=== PATIENT | female | born 1985 | race Caucasian/White ===

== ENCOUNTER 2017-03-11 09:38 | Emergency (ER) | payer OTHER ==
[~2017-03-11] VITALS: Ht 157.5 cm; Wt 60.2 kg
[~2017-03-11 09:38] MED LIST: FURO-85 PO; METH10TA2 PO; OXYC5TAB PO; POTA20TA16 PO
[2017-03-11 09:42] VITALS: Ht 157.5 cm; Wt 60.2 kg
[2017-03-11] MEDS ORDERED: HYDR1CAP85 PO (10:00)
[2017-03-11] MEDS ORDERED: DICY10CA12 PO (10:00)
[2017-03-11] MEDS ORDERED: SODIUM CHLORIDE 0.9% 1000ML 1,000 ML IV STA (10:09)
[2017-03-11] MEDS ORDERED: ONDANSETRON INJ 2 MG/ML 2 ML VIAL IV STA ×2 (10:09→14:32)
--- NOTE | 2017-03-11 10:12 | EMERGENCY ROOM VISIT NOTE ---
History Report prepared by Griselda: Crystal Jackson Under the Supervision of: Dr. Kyle Horner D.O. First contact with patient: 10:04 Chief Complaint: VOMITING Stated Complaint: VOMITING/STOMACH PROBLEMS Nursing Triage Summary: pt reports she has been in [facility] for meth. has not had any for 18 days feels nauseated and vomiting with diarrhea. has not been able to keep anything down. given benitol, and vistril not helping. reports losing 18 pounds History of Present Illness The patient is a 31 year old female who presents to the Emergency Room with complaints of worsening nausea and vomiting for the past several days. 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 She was originally placed on Methadone after a history of opioid dependence. She admits to worsening nausea with vomiting and diarrhea for the past several days and states she has been unable to keep anything down. The patient reports she was treated at the local [facility] with Bentyl and Vistaril, but they have provided no relief. She admits to an 18 pound weight loss in the past 3 weeks because of her nausea. She denies any recent fevers or illnesses or pain or swelling in her legs. 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 A total of 10 systems reviewed and were otherwise negative. Past Medical & Surgical Medical Problems: (1) maternal drug dependance Social History Smoking Status: Current Every Day Smoker Drug Use: other (history of opioid addiction) Marital Status: single, in relationship Housing Status: lives with family Occupation Status: unemployed Current/Historical Medications Scheduled Dicyclomine Hcl (Dicyclomine Hcl), 10 MG PO ACHS Methadone Hcl (Dolophine), 142 MG PO QAM Ondasetron Odt (Zofran Odt), 4 MG SL Q6H Scheduled PRN Hydroxyzine Pamoate (Vistaril), 25 MG PO TID PRN for Anxiety Allergies Coded Allergies: Citalopram (Verified Allergy, Unknown, SHORTNESS OF BREATH, 11/14/15) Physical Exam Vital Signs Date Time Temp Pulse Resp B/P (MAP) Pulse Ox O2 Delivery O2 Flow Rate FiO2 8/14/17 16:04 36.8 67 18 111/72 96 03/11/17 13:50 66 18 97/63 100 Room Air 03/11/17 11:58 63 18 112/75 98 03/11/17 10:37 65 18 115/80 98 Room Air 03/11/17 10:28 65 03/11/17 09:42 36.8 83 18 137/63 97 Room Air Physical Exam GENERAL: Patient is awake, alert, in no acute distress, patient is resting comfortably and showing no signs of anxiety EYES: The conjunctivae are clear. The pupils are round and reactive. EARS, NOSE, MOUTH AND THROAT: The nose is without any evidence of any deformity. Mucous membranes are moist tongue is midline NECK: The neck is nontender and supple. RESPIRATORY: Normal respiratory effort is noted there is no evidence of wheezing rhonchi or rales CARDIOVASCULAR: Regular rate and rhythm noted there no murmurs rubs or gallops normal S1 normal S2 GASTROINTESTINAL: The abdomen is soft. Bowel sounds are present in all quadrants. Abdomen is nontender MUSCULOSKELETAL/EXTREMITIES: There is no evidence of gross deformity full range of motion is noted in the hips and shoulders SKIN: There is no obvious evidence of any rash. There are no petechiae, pallor or cyanosis noted. NEUROLOGIC: Patient is awake alert and oriented x3 strength is symmetric patellar reflexes are 2+ bilaterally Medical Decision & Procedures ER Provider Diagnostic Interpretation: Radiology results as stated below per my review and radiologist interpretation: ABDOMINAL ULTRASOUND, RIGHT UPPER QUADRANT HISTORY: vomiting. COMPARISON: None. FINDINGS: Pancreas: The pancreatic tail is obscured by overlying bowel gas. The remaining portions of the pancreas are within normal limits. Liver: The liver is echogenic consistent with fatty change. Gallbladder: The gallbladder appears contracted. This likely accounts for the apparent wall thickening at 3 mm. No pericholecystic fluid. No gallstones. CBD: 4 mm. Right kidney: No hydronephrosis. IMPRESSION: 1. Contracted gallbladder which likely accounts for the wall thickening. No gallstones. 2. Hepatic steatosis. Electronically signed by: Gianluca Molina M.D. 03/11/2017 2:13 PM Laboratory Results 03/11/17 10:04 Red Blood Count 5.07, Mean Corpuscular Volume 92.3, Mean Corpuscular Hemoglobin 33.1, Mean Corpuscular Hemoglobin Concent 35.9, Mean Platelet Volume 11.8, Neutrophils (%) (Auto) 72.1, Lymphocytes (%) (Auto) 21.7, Monocytes (%) (Auto) 4.6, Eosinophils (%) (Auto) 0.8, Basophils (%) (Auto) 0.6, Neutrophils # (Auto) 6.31, Lymphocytes # (Auto) 1.90, Monocytes # (Auto) 0.40, Eosinophils # (Auto) 0.07, Basophils # (Auto) 0.05 03/11/17 10:04 Test 03/11/17 10:04 03/11/17 12:50 White Blood Count 8.75 K/uL (4.8-10.8) Red Blood Count 5.07 M/uL (4.2-5.4) Hemoglobin 16.8 g/dL (12.0-16.0) Hematocrit 46.8 % (37-47) Mean Corpuscular Volume 92.3 fL (80-100) Mean Corpuscular Hemoglobin 33.1 pg (25-34) Mean Corpuscular Hemoglobin Concent 35.9 g/dl (32-36) Platelet Count 265 K/uL (130-400) Mean Platelet Volume 11.8 fL (7.4-10.4) Neutrophils (%) (Auto) 72.1 % Lymphocytes (%) (Auto) 21.7 % Monocytes (%) (Auto) 4.6 % Eosinophils (%) (Auto) 0.8 % Basophils (%) (Auto) 0.6 % Neutrophils # (Auto) 6.31 K/uL (1.4-6.5) Lymphocytes # (Auto) 1.90 K/uL (1.2-3.4) Monocytes # (Auto) 0.40 K/uL (0.11-0.59) Eosinophils # (Auto) 0.07 K/uL (0-0.5) Basophils # (Auto) 0.05 K/uL (0-0.2) RDW Standard Deviation 37.3 fL (36.4-46.3) RDW Coefficient of Variation 11.1 % (11.5-14.5) Immature Granulocyte % (Auto) 0.2 % Immature Granulocyte # (Auto) 0.02 K/uL (0.00-0.02) Prothrombin Time 10.7 SECONDS (9.0-12.0) Prothromb Time International Ratio 1.0 (0.9-1.1) Activated Partial Thromboplast Time 25.4 SECONDS (21.0-31.0) Partial Thromboplastin Ratio 1.0 Anion Gap 8.0 mmol/L (3-11) Est Creatinine Clear Calc Drug Dose 85.8 ml/min Estimated GFR () 111.3 Estimated GFR (Non- 96.0 BUN/Creatinine Ratio 17.4 (10-20) Calcium Level 9.5 mg/dl (8.5-10.1) Total Bilirubin 0.8 mg/dl (0.2-1) Direct Bilirubin 0.3 mg/dl (0-0.2) Aspartate Amino Transf (AST/SGOT) 60 U/L (15-37) Alanine Aminotransferase (ALT/SGPT) 83 U/L (12-78) Alkaline Phosphatase 113 U/L (45-117) Total Protein 8.9 gm/dl (6.4-8.2) Albumin 4.0 gm/dl (3.4-5.0) Lipase 401 U/L (73-393) Human Chorionic Gonadotropin, Qual NEG (NEG) Salicylates Level < 1.7 mg/dl (2.8-20) Acetaminophen Level < 2 ug/ml (10-30) Urine Color DK YELLOW Urine Appearance CLEAR (CLEAR) Urine pH 6.5 (4.5-7.5) Urine Specific [place] 1.027 (1.000-1.030) Urine Protein NEG (NEG) Urine Glucose (UA) NEG (NEG) Urine Ketones 2+ (NEG) Urine Occult Blood NEG (NEG) Urine Nitrite NEG (NEG) Urine Bilirubin NEG (NEG) Urine Urobilinogen NEG (NEG) Urine Leukocyte Esterase TRACE (NEG) Urine WBC (Auto) 1-5 /hpf (0-5) Urine RBC (Auto) 0-4 /hpf (0-4) Urine Hyaline Casts (Auto) 1-5 /lpf (0-5) Urine Epithelial Cells (Auto) >30 /lpf (0-5) Urine Bacteria (Auto) NEG (NEG) Laboratory results per my review. Medications Administered Medications (Trade) Dose Ordered Sig/Luly Route Start Time Stop Time Status Last Admin Dose Admin Sodium Chloride 1,000 ml @ 999 mls/hr Q1H1M STAT IV 8/14/17 10:09 03/11/17 11:09 DC 03/11/17 10:15 999 MLS/HR Ondansetron HCl (Zofran Inj) 4 mg NOW STAT IV 03/11/17 10:09 03/11/17 10:10 DC 03/11/17 10:15 4 MG Potassium Chloride (Kcl 10 Meq / Wtr) 10 meq NOW STAT IV 03/11/17 10:48 03/11/17 10:50 DC 03/11/17 11:20 10 MEQ Ondansetron HCl (Zofran Inj) 4 mg NOW STAT IV 03/11/17 14:32 03/11/17 14:33 DC 03/11/17 14:32 4 MG ED Course 1008: The patient was evaluated in room B8. A complete history and physical examination were performed. 1009: Zofran 4 mg IV, NSS 1000 ml @ 999 mls/hr IV. 1048: Potassium Chloride 10 meq IV. 1423: I reevaluated the patient. She is feeling much better. I discussed her results and discharge instructions and she verbalized complete understanding and agreement. 1432: Zofran 4 mg IV. Medical Decision Prior records/ancillary studies reviewed. Triage Nursing notes reviewed. The patient's history was concerning for nausea, vomiting, diarrhea, and abdominal pain. Differential diagnosis: Etiologies such as gastroenteritis, food borne illness, infections, appendicitis , diverticulitis, inflammatory bowel disease, obstruction, GI bleed, biliary pathology, as well as others were entertained. The patient is a 31-year-old female who presented to the emergency department for an evaluation of nausea and vomiting. The patient did not appear to have any abdominal tenderness on physical exam. Her exam was not consistent with an acute surgical abdomen. She's been having problems because recently she has stopped her medications for opiate addiction and is started having some withdrawal symptoms including nausea and vomiting. The patient was treated with IV fluids and IV antiemetics. She was reevaluated multiple times. I discussed the patient's laboratory and radiographic studies with her. She was found have mild elevations in her liver function studies but states that this is not new for her and that she's had this before. She was encouraged to rest and avoid any strenuous activity. She was encouraged to continue all medications as prescribed. She was also encouraged to return to the emergency Department immediately if symptoms change worsen or the need arises. Medication Reconcilliation Current Medication List: was personally reviewed by me Blood Pressure Screening Patient's blood pressure: Normal blood pressure Blood pressure disposition: Did not require urgent referral Impression Primary Impression: Nausea Additional Impressions: Vomiting Dehydration Hypokalemia Scribe Attestation The scribe's documentation has been prepared under my direction and personally reviewed by me in its entirety. I confirm that the note above accurately reflects all work, treatment, procedures, and medical decision making performed by me. Departure Information Dispostion Home / Self-Care Prescriptions Ondasetron Odt (ZOFRAN ODT) 4 Mg Tab 4 MG SL Q6H for Nausea, #20 TAB Prov: Kyle Horner, DO 03/11/17 Referrals Lita Martins D.O. (PCP) Patient Instructions ED Nausea Vomiting, My [facility] Additional Instructions Call your family to schedule follow-up appointment. Continue all medications as prescribed. Drink plenty clear liquids. Problem Qualifiers Additional Impressions: Vomiting Vomiting type: unspecified Vomiting Intractability: non-intractable Nausea presence: with nausea Qualified Codes: R11.2 - Nausea with vomiting, unspecified
[2017-03-11 10:18] LABS: BASO % 0.6 %; BASO ABS # 0.05 K/uL (0-0.2); COMPLETE YES; EOS % 0.8 %; HEMATOCRIT 46.8 % (37-47); IG% 0.2 %; LYMPH % 21.7 %; MEAN CELL VOLUME 92.3 fL (80-100); MEAN CORPUSCULAR HEMOGLOBIN 33.1 pg (25-34); MEAN CORPUSCULAR HGB CONC 35.9 g/dl (32-36); MEAN PLATELET VOLUME 11.8 fL (7.4-10.4); MONO % 4.6 %; NEUT % 72.1 %; PLATELET COUNT 265 K/uL (130-400); RED BLOOD COUNT 5.07 M/uL (4.2-5.4); WHITE BLOOD COUNT 8.75 K/uL (4.8-10.8)
[2017-03-11 10:40] LABS: BUN/CREATININE RATIO 17.4 (10-20); CALCIUM 9.5 mg/dl (8.5-10.1); CREATININE 0.82 mg/dl (0.60-1.20); POTASSIUM 2.9 mmol/L (3.5-5.1)
[2017-03-11 10:42] LABS: PREG INTERNAL NEGATIVE QC NEG CLEAR BACKGROUND; PREG INTERNAL POSITIVE QC POS CONTROL LINE
[2017-03-11] MEDS ORDERED: POTASSIUM CHLORIDE 10 MEQ / 100ML WTR IV STA (10:48)
[2017-03-11 11:32] LABS: PROTHROMBIN TIME (PATIENT) 10.7 SECONDS (9.0-12.0)
[2017-03-11 11:55] LABS: ACETAMINOPHEN < 2 ug/ml (10-30)
[2017-03-11 13:21] LABS: URINE APPEARANCE CLEAR (CLEAR); URINE COLOR DK YELLOW; URINE EPITHELIAL CELL AUTO >30 /lpf (0-5); URINE NITRITE NEG (NEG); URINE PH 6.5 (4.5-7.5); URINE SPECIFIC GRAVITY 1.027 (1.000-1.030); UROBILINOGEN NEG (NEG)
[2017-03-11 13:55] LABS: MANUAL MICROSCOPIC REQUIRED? NO; REVIEW REQ? YES; URINE BILIRUBIN NEG (NEG)
--- NOTE | 2017-03-11 14:15 | DIAGNOSTIC IMAGING REPORT ---
ABDOMINAL ULTRASOUND, RIGHT UPPER QUADRANT HISTORY: vomiting. COMPARISON: None. FINDINGS: Pancreas: The pancreatic tail is obscured by overlying bowel gas. The remaining portions of the pancreas are within normal limits. Liver: The liver is echogenic consistent with fatty change. Gallbladder: The gallbladder appears contracted. This likely accounts for the apparent wall thickening at 3 mm. No pericholecystic fluid. No gallstones. CBD: 4 mm. Right kidney: No hydronephrosis. IMPRESSION: 1. Contracted gallbladder which likely accounts for the wall thickening. No gallstones. 2. Hepatic steatosis. Electronically signed by: Gianluca Molina M.D. 03/11/2017 2:13 PM Dictated Date/Time: 03/11/2017 2:12 PM
[2017-03-11] MEDS ORDERED: ONDA4TAB10 SL (14:22)
[2017-03-11 16:04] VITALS: BP 111/72; PULSE 67; TEMP 36.8; O2SAT 96
== END 2017-03-11 15:40 | disposition home or self-care (01) ==
LOC: C.EDB 09:40 → C.EDA 15:40
DX: R11.2 Nausea with vomiting, unspecified (principal); E86.0 Dehydration; E87.6 Hypokalemia; R19.7 Diarrhea, unspecified; F11.23 Opioid dependence with withdrawal; Z79.899 Other long term (current) drug therapy; F17.200 Nicotine dependence, unspecified, uncomplicated

== ENCOUNTER 2017-03-26 10:15 | Emergency (ER) | payer OTHER ==
[~2017-03-26] VITALS: Ht 157.5 cm; Wt 58.6 kg
[~2017-03-26 10:15] MED LIST changes: +DICY10CA12 PO; -FURO-85 PO; +HYDR1CAP85 PO; +ONDA4TAB10 SL; -OXYC5TAB PO; -POTA20TA16 PO
[2017-03-26 10:16] VITALS: TEMP 36.7; Ht 157.5 cm; Wt 58.6 kg
[2017-03-26] MEDS ORDERED: DiphenhydrAMINE HCL 50 MG/ML VIAL IV STA (10:43)
[2017-03-26] MEDS ORDERED: METOCLOPRAMIDE HCL INJ 5 MG/ML 2 ML VIAL IV STA (10:43)
[2017-03-26] MEDS ORDERED: ACETAMINOPHEN 500 MG TAB PO STA (10:43)
[2017-03-26] MEDS ORDERED: SODIUM CHLORIDE 0.9% 1000ML 1,000 ML IV STA (10:43)
--- NOTE | 2017-03-26 10:49 | EMERGENCY ROOM VISIT NOTE ---
History Report prepared by Griselda: Rochelle Rajput Under the Supervision of: Dr. Sabas Vaughn M.D. First contact with patient: 10:21 Chief Complaint: FALL Stated Complaint: FELL, HIT BACK OF HEAD, DIZZY, VOMITING, BACK PAIN History of Present Illness The patient is a 31 year old white female who presents to the ED with a cc of a fall occurring 2 days ago. She was giving her friend a hug on the stairs when the dog knocked them down. The patient states that she hit the right side of her neck on a stump. Positive dizziness and right-sided neck pain. Negative LOC. She does not take any blood thinners. Patient rates her pain as an 8/10 in severity. Source of History: patient Onset: 2 days ago Position: other (global - fall) Symptom Intensity: 8/10 Timing: other (episode) Associated Symptoms: + neck pain, No LOC Note: Pt notes dizziness. Review of Systems See HPI for pertinent positives and negatives. A total of ten systems were reviewed and were otherwise negative. Past Medical & Surgical Medical Problems: (1) Headache (2) maternal drug dependance (3) labor (4) Pyelonephritis Family History FHx: gallbladder disease Kidney disease Kidney stones Social History Smoking Status: Current Every Day Smoker Smokeless Tobacco Use: No Alcohol Use: occasionally Drug Use: other Housing Status: lives with family Occupation Status: unemployed Current/Historical Medications Scheduled Methadone Hcl (Dolophine), 142 MG PO QAM Ondasetron Odt (Zofran Odt), 4 MG SL Q6H Scheduled PRN Acetaminophen (Tylenol), 500 MG PO UD PRN for Pain Tramadol (Ultram), 1 TAB PO BID PRN for Pain Allergies Coded Allergies: Citalopram (Verified Allergy, Unknown, SHORTNESS OF BREATH, 03/26/17) Physical Exam Vital Signs Date Time Temp Pulse Resp B/P (MAP) Pulse Ox O2 Delivery O2 Flow Rate FiO2 03/26/17 13:14 74 18 119/67 98 03/26/17 11:17 74 18 125/77 98 Room Air 03/26/17 10:16 36.7 79 16 125/86 98 Room Air Physical Exam GENERAL: Awake, alert, well-appearing, NAD HENT: Normocephalic, atraumatic. No evidence of bleeding or ecchymosis or hematoma. She does have right-sided perispinal tenderness to palpation but no midline cervical tenderness. EYES: Normal conjunctiva. Sclera non-icteric. NECK: Supple. No nuchal rigidity. FROM. RESPIRATORY: CTAB, no rhonchi, wheezing, crackles CARDIAC: RRR, no MRG ABDOMEN: Soft, NTND, BS+ MSK: No chest wall TTP, no LE edema NEURO: GCS 15, CN 2-12 intact, moves all 4s on command. 5/5 strength. No pronator drift. Good finger to nose. No sensory deficit. SKIN: No rash or jaundice noted. Medical Decision & Procedures ER Provider Diagnostic Interpretation: Radiology results as stated below per my review and radiologist interpretation: HEAD WITHOUT CONTRAST (CT) CLINICAL HISTORY: 31 years-old Female with s/p fall, vomiting, posterior occipital pain. TECHNIQUE: Multiple axial CT images of the head were obtained without contrast. A dose lowering technique was utilized adhering to the principles of ALARA. CT DOSE: 614.27 mGy.cm COMPARISON: CT head 04/27/2014. FINDINGS: No acute intracranial hemorrhage, midline shift, mass, large territorial ischemia or abnormal extra-axial collection. The calvarium is intact. The paranasal sinuses, mastoid air cells, and middle ear cavities are clear. IMPRESSION: No acute intracranial abnormality. The above report was generated using voice recognition software. It may contain grammatical, syntax or spelling errors. Electronically signed by: Lambert Easton M.D. 03/26/2017 11:36 AM Dictated Date/Time: 03/26/2017 11:34 AM Laboratory Results 03/26/17 11:10 Red Blood Count 4.68, Mean Corpuscular Volume 93.6, Mean Corpuscular Hemoglobin 33.8, Mean Corpuscular Hemoglobin Concent 36.1, Mean Platelet Volume 12.1, Neutrophils (%) (Auto) 72.0, Lymphocytes (%) (Auto) 19.6, Monocytes (%) (Auto) 6.5, Eosinophils (%) (Auto) 0.6, Basophils (%) (Auto) 0.7, Neutrophils # (Auto) 4.88, Lymphocytes # (Auto) 1.33, Monocytes # (Auto) 0.44, Eosinophils # (Auto) 0.04, Basophils # (Auto) 0.05 03/26/17 11:10 Test 03/26/17 11:10 White Blood Count 6.78 K/uL (4.8-10.8) Red Blood Count 4.68 M/uL (4.2-5.4) Hemoglobin 15.8 g/dL (12.0-16.0) Hematocrit 43.8 % (37-47) Mean Corpuscular Volume 93.6 fL (80-100) Mean Corpuscular Hemoglobin 33.8 pg (25-34) Mean Corpuscular Hemoglobin Concent 36.1 g/dl (32-36) Platelet Count 159 K/uL (130-400) Mean Platelet Volume 12.1 fL (7.4-10.4) Neutrophils (%) (Auto) 72.0 % Lymphocytes (%) (Auto) 19.6 % Monocytes (%) (Auto) 6.5 % Eosinophils (%) (Auto) 0.6 % Basophils (%) (Auto) 0.7 % Neutrophils # (Auto) 4.88 K/uL (1.4-6.5) Lymphocytes # (Auto) 1.33 K/uL (1.2-3.4) Monocytes # (Auto) 0.44 K/uL (0.11-0.59) Eosinophils # (Auto) 0.04 K/uL (0-0.5) Basophils # (Auto) 0.05 K/uL (0-0.2) RDW Standard Deviation 39.4 fL (36.4-46.3) RDW Coefficient of Variation 11.8 % (11.5-14.5) Immature Granulocyte % (Auto) 0.6 % Immature Granulocyte # (Auto) 0.04 K/uL (0.00-0.02) Anion Gap 9.0 mmol/L (3-11) Est Creatinine Clear Calc Drug Dose 82.4 ml/min Estimated GFR () 116.4 Estimated GFR (Non- 100.5 BUN/Creatinine Ratio 9.6 (10-20) Calcium Level 9.8 mg/dl (8.5-10.1) Human Chorionic Gonadotropin, Qual NEG (NEG) Laboratory results reviewed by me. Medications Administered Medications (Trade) Dose Ordered Sig/Luly Route Start Time Stop Time Status Last Admin Dose Admin Sodium Chloride 1,000 ml @ 999 mls/hr Q1H1M STAT IV 03/26/17 10:43 03/26/17 11:43 DC 03/26/17 11:16 999 MLS/HR Metoclopramide HCl (Reglan Inj) 10 mg NOW STAT IV 03/26/17 10:43 03/26/17 10:46 DC 03/26/17 11:15 10 MG Diphenhydramine HCl (Benadryl Inj) 25 mg NOW STAT IV 03/26/17 10:43 03/26/17 10:46 DC 03/26/17 11:16 25 MG Acetaminophen (Tylenol Tab) 1,000 mg NOW STAT PO 03/26/17 10:43 03/26/17 10:46 DC 03/26/17 11:16 1,000 MG Ondansetron HCl (Zofran Odt) 4 mg ONE STAT PO 03/26/17 12:30 03/26/17 12:31 DC 03/26/17 13:14 4 MG ED Course 1021: The patient was evaluated in room B12A. A complete history and physical exam was performed. 1043: Tylenol 1000 mg PO, Benadryl 25 mg IV, Reglan 10 mg IV, NSS 1000 ml @ 999 mls/hr IV 1226: I reassessed the patient at this time. She is feeling better and resting comfortably. I discussed the results and treatment plan with the patient. I answered all pertaining questions that she had. She expressed understanding and verbalized agreement. The patient will be discharged home. 1230: Zofran 4 mg PO Medical Decision Differential diagnoses includes concussion, ICH, neck sprain/strain/fracture. The patient is a 31 year old white female who presents to the ED with a cc of a fall occurring 2 days ago. Patient was seen and evaluated the bedside. Patient did complain of some posterior occipital pain but had no evidence of other trauma. Patient had a fairly normal neuro exam and had only right-sided paraspinal tenderness to palpation. Patient had a CT of the head given that she met Barney CT head criteria. Patient did not receive a CT of the cervical spine given she did not meet Nexus criteria. Patient was given a headache cocktail. Patient states that her pain and her nausea improved. Patient was able to ambulate and tolerate by mouth. Patient had a negative CT of the head. Patient was told to slowly reintroduce herself to her daily activities as she may have some postconcussion type symptoms. Patient was given prescriptions as well as follow -up, discharge, return precautions. Patient was also given follow-up as well as told to obtain follow up with concussion clinic if she had persistent symptoms. Patient was told to return if she had worsening or more persistent nausea and vomiting and/or numbness, weakness, or tingling. At time of reassessment patient had no new neurological symptoms or deficits. Patient was discharged home. Medication Reconcilliation Current Medication List: was personally reviewed by me Blood Pressure Screening Patient's blood pressure: Normal blood pressure Impression Primary Impression: Headache Additional Impressions: Nausea & vomiting Concussion Fall Encounter for smoking cessation counseling Scribe Attestation The scribe's documentation has been prepared under my direction and personally reviewed by me in its entirety. I confirm that the note above accurately reflects all work, treatment, procedures, and medical decision making performed by me. Departure Information Dispostion Home / Self-Care Prescriptions Tramadol (Ultram) 50 Mg Tab 1 TAB PO BID Y for Pain for 30 Days, #12 TAB Prov: Sabas Vaughn M.D. 03/26/17 Ondasetron Odt (ZOFRAN ODT) 4 Mg Tab 4 MG SL Q6H for Nausea, #6 TAB Prov: Sabas Vaughn M.D. 03/26/17 Referrals No Doctor, Assigned (PCP) [facility] Forms HOME CARE DOCUMENTATION FORM, IMPORTANT VISIT INFORMATION Patient Instructions Concussion Dc, My [facility] Additional Instructions Please return to the emergency department if you have worsening or recurrent symptoms not amenable to at-home treatment. Please call for a follow-up appointment with her primary care physician. Please take your medications as prescribed. If you have other concerns and/or complaints please feel free to also call your primary care physician's office or return the ED for further evaluation, management, and treatment. Please follow up with [facility] for concussions if you have persistent symptoms. He may take Motrin 800 mg every 6 hours but do not take without food or for more than 2 consecutive days. You may take 1000 mg of Tylenol every 6 hours. You may take Motrin and Tylenol same time. Problem Qualifiers Primary Impression: Headache Headache type: unspecified Headache chronicity pattern: acute headache Intractability: not intractable Qualified Codes: R51 - Headache Additional Impressions: Nausea & vomiting Vomiting type: unspecified Vomiting Intractability: non-intractable Qualified Codes: R11.2 - Nausea with vomiting, unspecified Concussion Encounter type: initial encounter Loss of consciousness presence/duration: without LOC Qualified Codes: S06.0X0A - Concussion without loss of consciousness, initial encounter Fall Encounter type: initial encounter Qualified Codes: W19.XXXA - Unspecified fall, initial encounter
[2017-03-26 11:34] LABS: BASO % 0.7 %; BASO ABS # 0.05 K/uL (0-0.2); COMPLETE YES; EOS % 0.6 %; HEMATOCRIT 43.8 % (37-47); IG% 0.6 %; LYMPH % 19.6 %; LYMPH ABS # 1.33 K/uL (1.2-3.4); MEAN CELL VOLUME 93.6 fL (80-100); MEAN CORPUSCULAR HEMOGLOBIN 33.8 pg (25-34); MEAN CORPUSCULAR HGB CONC 36.1 g/dl (32-36); MEAN PLATELET VOLUME 12.1 fL (7.4-10.4); MONO % 6.5 %; PLATELET COUNT 159 K/uL (130-400); RED BLOOD COUNT 4.68 M/uL (4.2-5.4); WHITE BLOOD COUNT 6.78 K/uL (4.8-10.8)
--- NOTE | 2017-03-26 11:37 | DIAGNOSTIC IMAGING REPORT ---
HEAD WITHOUT CONTRAST (CT) CLINICAL HISTORY: 31 years-old Female with s/p fall, vomiting, posterior occipital pain. TECHNIQUE: Multiple axial CT images of the head were obtained without contrast. A dose lowering technique was utilized adhering to the principles of ALARA. CT DOSE: 614.27 mGy.cm COMPARISON: CT head 04/27/2014. FINDINGS: No acute intracranial hemorrhage, midline shift, mass, large territorial ischemia or abnormal extra-axial collection. The calvarium is intact. The paranasal sinuses, mastoid air cells, and middle ear cavities are clear. IMPRESSION: No acute intracranial abnormality. The above report was generated using voice recognition software. It may contain grammatical, syntax or spelling errors. Electronically signed by: Lambert Easton M.D. 03/26/2017 11:36 AM Dictated Date/Time: 03/26/2017 11:34 AM
[2017-03-26] MEDS ORDERED: ACET-1256 PO (11:42)
[2017-03-26 11:50] LABS: BUN/CREATININE RATIO 9.6 (10-20); CALCIUM 9.8 mg/dl (8.5-10.1); CREATININE 0.79 mg/dl (0.60-1.20)
[2017-03-26 12:08] LABS: PREG INTERNAL NEGATIVE QC NEG CLEAR BACKGROUND; PREG INTERNAL POSITIVE QC POS CONTROL LINE
[2017-03-26] MEDS ORDERED: ONDANSETRON 4MG OD TAB PO STA (12:30)
[2017-03-26] MEDS ORDERED: TRAM-10 PO (12:33)
[2017-03-26] MEDS ORDERED: ONDA4TAB10 SL (12:33)
[2017-03-26 13:14] VITALS: BP 119/67; PULSE 74; O2SAT 98
== END 2017-03-26 13:16 | disposition home or self-care (01) ==
LOC: C.EDB 10:16
DX: S06.0X0A Concussion without loss of consciousness, initial encounter (principal); W19.XXXA Unspecified fall, initial encounter; F17.200 Nicotine dependence, unspecified, uncomplicated; Z88.8 Allergy status to other drugs, medicaments and biological substances; Z87.440 Personal history of urinary (tract) infections; Z83.79 Family history of other diseases of the digestive system; Z84.1 Family history of disorders of kidney and ureter

== ENCOUNTER 2017-04-14 01:43 | Emergency (ER) | payer OTHER ==
[~2017-04-14] VITALS: Ht 157.5 cm; Wt 56.7 kg
[~2017-04-14 01:43] MED LIST changes: +ACET-1256 PO; -DICY10CA12 PO; -HYDR1CAP85 PO; +TRAM-10 PO
[2017-04-14 01:52] VITALS: TEMP 36.7; Ht 157.5 cm; Wt 56.7 kg
[2017-04-14] MEDS ORDERED: METOCLOPRAMIDE HCL INJ 5 MG/ML 2 ML VIAL IV STA (02:08)
[2017-04-14] MEDS ORDERED: DICYCLOMINE HCL 20 MG TAB PO STA (02:08)
[2017-04-14] MEDS ORDERED: DiphenhydrAMINE HCL 50 MG/ML VIAL IV STA (02:08)
[2017-04-14] MEDS ORDERED: SODIUM CHLORIDE 0.9% 1000ML 1,000 ML IV STA (02:08)
[2017-04-14] MEDS ORDERED: ONDANSETRON INJ 2 MG/ML 2 ML VIAL IV STA (02:11)
[2017-04-14] MEDS ORDERED: SEPTRA DS HOME PACK 1 EA VIAL PO ONE ×2 (02:15→04:53)
[2017-04-14] MEDS ORDERED: CEPHALEXIN 500MG HOME PACK 1 EA BTL PO ONE ×2 (02:15→04:52)
[2017-04-14] MEDS ORDERED: DICYCLOMINE HCL 10 MG CAP ONE (02:31)
[2017-04-14] MEDS ORDERED: [UNRECOGNIZED DRUG - OTHER] PO (02:33)
[2017-04-14 02:39] LABS: BASO % 0.2 %; BASO ABS # 0.02 K/uL (0-0.2); COMPLETE YES; EOS % 0.3 %; HEMATOCRIT 40.7 % (37-47); IG% 0.3 %; LYMPH % 12.2 %; LYMPH ABS # 1.24 K/uL (1.2-3.4); MEAN CELL VOLUME 93.1 fL (80-100); MEAN CORPUSCULAR HEMOGLOBIN 34.1 pg (25-34); MEAN CORPUSCULAR HGB CONC 36.6 g/dl (32-36); MEAN PLATELET VOLUME 11.2 fL (7.4-10.4); MONO % 7.3 %; NEUT % 79.7 %; PLATELET COUNT 199 K/uL (130-400); RED BLOOD COUNT 4.37 M/uL (4.2-5.4); WHITE BLOOD COUNT 10.17 K/uL (4.8-10.8)
[2017-04-14 02:42] LABS: URINE APPEARANCE CLOUDY (CLEAR); URINE COLOR ORANGE; URINE EPITHELIAL CELL AUTO >30 /lpf (0-5); URINE NITRITE NEG (NEG); URINE SPECIFIC GRAVITY 1.021 (1.000-1.030); UROBILINOGEN NEG (NEG); ZZUR CULT IF INDIC CLEAN CATCH NO
[2017-04-14 02:45] LABS: MANUAL MICROSCOPIC REQUIRED? NO; REVIEW REQ? YES; URINE BILIRUBIN 1+ (NEG)
[2017-04-14 02:50] LABS: URINE MUCUS PRESENT (NONE PRSENT)
[2017-04-14 02:56] LABS: BUN/CREATININE RATIO 5.4 (10-20); CALCIUM 9.7 mg/dl (8.5-10.1); CREATININE 0.74 mg/dl (0.60-1.20); POTASSIUM 3.3 mmol/L (3.5-5.1)
[2017-04-14 02:58] LABS: PREG INTERNAL NEGATIVE QC NEG CLEAR BACKGROUND; PREG INTERNAL POSITIVE QC POS CONTROL LINE
[2017-04-14] MEDS ORDERED: POTASSIUM CHLORIDE 10 MEQ TABCR PO STA (03:48)
[2017-04-14] MEDS ORDERED: ONDANSETRON HOME PACK 4MG OD TAB PO ONE (04:15)
--- NOTE | 2017-04-14 04:56 | EMERGENCY ROOM VISIT NOTE ---
History First contact with patient: 01:52 Chief Complaint: VOMITING Stated Complaint: VOMITING,DIARRHEA Nursing Triage Summary: N/V/D x 2 days. Pt denies abd pain. 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 History of Present Illness The patient is a 31 year old female who presents to the Emergency Room with complaints of nausea, vomiting, diarrhea for the past 2 days. No blood or black in the emesis or diarrhea. No recent antibiotics. No well water. Patient also complains of ingrown hair to her left posterior thigh that is irritating to her and has tried to squeeze at it. Patient denies fevers, chest pain, dyspnea, abdominal pain, urinary symptoms, back pain. She is tolerating fluids. Tetanus is current. Review of Systems See HPI for pertinent positives & negatives. A total of 10 systems reviewed and were otherwise negative. Past Medical/Surgical History Medical Problems: (1) Headache (2) maternal drug dependance (3) labor (4) Pyelonephritis Family History FHx: gallbladder disease Kidney disease Kidney stones Social History Smoking Status: Never Smoker Alcohol Use: occasionally Drug Use: other Housing Status: lives with family Occupation Status: unemployed Current/Historical Medications Scheduled PRN Tramadol (Ultram), 1 TAB PO BID PRN for Pain [Benetol], 10 MG PO for WEIGHT LOSS Physical Exam Vital Signs Date Time Temp Pulse Resp B/P (MAP) Pulse Ox O2 Delivery O2 Flow Rate FiO2 04/14/17 03:51 63 16 94/60 97 Room Air 04/14/17 01:52 36.7 73 20 136/74 96 Room Air Physical Exam VITALS: Vitals are noted on the nurse's note and reviewed by myself. Vital signs stable. GENERAL: Pleasant female anxious-appearing, in no acute distress, nondiaphoretic , well-developed well-nourished. SKIN: Left posterior thigh with 1 cm x 2 cm erythematous area with ingrown hair without fluctuance. No lymphangitis The rest of the skin was without rashes, erythema, edema, or bruising. There is no tenting of the skin. Capillary reflex less than 2 seconds. HEAD: Normocephalic atraumatic. EARS: External auditory canals clear, tympanic membranes pearly huffman without erythema or effusion bilaterally. EYES: Pupils equal round and reactive to light and accommodation. Conjunctivae without injection, sclerae without icterus. Extraocular movements intact. NOSE: Patent, turbinates without inflammation or discharge. MOUTH: Mucous membranes moist. Pharynx without erythema or exudate. Uvula midline. Airway patent. Tongue does not deviate. NECK: Supple without nuchal rigidity. No lymphadenopathy. No thyromegaly. Cervical spine is nontender. No JVD. HEART: Regular rate and rhythm without murmurs gallops or rubs. LUNGS: Clear to auscultation bilaterally without wheezes, rales or rhonchi. No dullness to percussion. No retractions or accessory muscle use. ABDOMEN: Positive bowel sounds x 4. Normal tympanic percussion. Soft, nontender, without masses or organomegaly. Ramírez sign negative. No guarding or rebound tenderness. No CVA tenderness MUSCULOSKELETAL: No muscle atrophy, erythema, or edema noted. NEURO: Patient was alert and oriented to person place and time. Normal sensation to light and sharp touch. No focal neurological deficits. Medical Decision & Procedures Laboratory Results 04/14/17 02:25 Red Blood Count 4.37, Mean Corpuscular Volume 93.1, Mean Corpuscular Hemoglobin 34.1, Mean Corpuscular Hemoglobin Concent 36.6, Mean Platelet Volume 11.2, Neutrophils (%) (Auto) 79.7, Lymphocytes (%) (Auto) 12.2, Monocytes (%) (Auto) 7.3, Eosinophils (%) (Auto) 0.3, Basophils (%) (Auto) 0.2, Neutrophils # (Auto) 8.11, Lymphocytes # (Auto) 1.24, Monocytes # (Auto) 0.74, Eosinophils # (Auto) 0.03, Basophils # (Auto) 0.02 04/14/17 02:25 Test 04/14/17 02:25 White Blood Count 10.17 K/uL (4.8-10.8) Red Blood Count 4.37 M/uL (4.2-5.4) Hemoglobin 14.9 g/dL (12.0-16.0) Hematocrit 40.7 % (37-47) Mean Corpuscular Volume 93.1 fL (80-100) Mean Corpuscular Hemoglobin 34.1 pg (25-34) Mean Corpuscular Hemoglobin Concent 36.6 g/dl (32-36) Platelet Count 199 K/uL (130-400) Mean Platelet Volume 11.2 fL (7.4-10.4) Neutrophils (%) (Auto) 79.7 % Lymphocytes (%) (Auto) 12.2 % Monocytes (%) (Auto) 7.3 % Eosinophils (%) (Auto) 0.3 % Basophils (%) (Auto) 0.2 % Neutrophils # (Auto) 8.11 K/uL (1.4-6.5) Lymphocytes # (Auto) 1.24 K/uL (1.2-3.4) Monocytes # (Auto) 0.74 K/uL (0.11-0.59) Eosinophils # (Auto) 0.03 K/uL (0-0.5) Basophils # (Auto) 0.02 K/uL (0-0.2) RDW Standard Deviation 39.4 fL (36.4-46.3) RDW Coefficient of Variation 11.7 % (11.5-14.5) Immature Granulocyte % (Auto) 0.3 % Immature Granulocyte # (Auto) 0.03 K/uL (0.00-0.02) Urine Color ORANGE Urine Appearance CLOUDY (CLEAR) Urine pH 6.0 (4.5-7.5) Urine Specific [place] 1.021 (1.000-1.030) Urine Protein NEG (NEG) Urine Glucose (UA) NEG (NEG) Urine Ketones 1+ (NEG) Urine Occult Blood TRACE (NEG) Urine Nitrite NEG (NEG) Urine Bilirubin 1+ (NEG) Urine Urobilinogen NEG (NEG) Urine Leukocyte Esterase TRACE (NEG) Urine WBC (Auto) 1-5 /hpf (0-5) Urine RBC (Auto) 0-4 /hpf (0-4) Urine Hyaline Casts (Auto) 0 /lpf (0-5) Urine Epithelial Cells (Auto) >30 /lpf (0-5) Urine Bacteria (Auto) NEG (NEG) Urine Mucus PRESENT (NONE PRSENT) Urine Yeast (Auto) PRESENT (NONE PRSENT) Anion Gap 6.0 mmol/L (3-11) Est Creatinine Clear Calc Drug Dose 87.9 ml/min Estimated GFR () 126.0 Estimated GFR (Non- 108.7 BUN/Creatinine Ratio 5.4 (10-20) Calcium Level 9.7 mg/dl (8.5-10.1) Total Bilirubin 0.8 mg/dl (0.2-1) Direct Bilirubin 0.2 mg/dl (0-0.2) Aspartate Amino Transf (AST/SGOT) 51 U/L (15-37) Alanine Aminotransferase (ALT/SGPT) 69 U/L (12-78) Alkaline Phosphatase 105 U/L (45-117) Total Protein 8.6 gm/dl (6.4-8.2) Albumin 4.2 gm/dl (3.4-5.0) Human Chorionic Gonadotropin, Qual NEG (NEG) Medications Administered Medications (Trade) Dose Ordered Sig/Luly Route Start Time Stop Time Status Last Admin Dose Admin Sodium Chloride 1,000 ml @ 999 mls/hr Q1H1M STAT IV 04/14/17 02:08 04/14/17 03:08 DC 04/14/17 02:08 999 MLS/HR Ondansetron HCl (Zofran Inj) 4 mg NOW STAT IV 04/14/17 02:11 04/14/17 02:12 DC 04/14/17 02:33 4 MG Dicyclomine HCl (Bentyl Cap) 20 mg STK-MED ONCE .ROUTE 04/14/17 02:31 04/14/17 02:32 DC 04/14/17 02:34 20 MG ED Course Prior records/ancillary studies reviewed. Triage Nursing notes reviewed. The patient's history was concerning for nausea, vomiting, diarrhea, and abdominal pain. Differential diagnosis: Etiologies such as gastroenteritis, food borne illness, infections, appendicitis , diverticulitis, inflammatory bowel disease, obstruction, GI bleed, biliary pathology, as well as others were entertained. Physical examination findings: As above. Abdominal examination revealed no tenderness. Vital signs reviewed and revealed stable. ER treatment provided: IV hydration 1 L NSS. Zofran, Bentyl On reassessment the patient felt better. Patient was tolerating p.o. intake. Diagnostics interpretation by me: The labs revealed no leukocytosis. Hypokalemia and this is replaced orally This appears to be consistent with vomiting and diarrhea with infected hair follicle. Patient did not have acute abdomen on exam. She is tolerating fluids. She is well-appearing. She is advised take medications as directed and to do bland diet for the next few days. She is advised follow-up family care here in the ER sooner for abdominal pain, fevers, vomiting, spreading of infection, worsening signs or symptoms or as needed. By the evaluation outlined above emergent etiologies such as appendicitis, diverticulitis, obstruction, cardiac sources, mesenteric ischemia, aortic pathology, inflammatory bowel disease, renal colic, PUD, biliary pathology, UTI, as well as others were deemed relatively unlikely. The pt informed about the findings as listed above. All questions were answered and pleased with the treatment. Return instructions were outlined and the patient was discharged in stable condition. Outpatient prescription management: Keflex, Bactrim Referral: The patient was referred to their primary care physician for follow-up in 2 to 3 days for a recheck of the current condition. Case reviewed with my attending Medical Decision as above Medication Reconcilliation Current Medication List: was personally reviewed by me Blood Pressure Screening Patient's blood pressure: Normal blood pressure Impression Primary Impression: Nausea, vomiting, and diarrhea Additional Impression: Cellulitis Departure Information Dispostion Home / Self-Care Condition GOOD Referrals Lita Martins D.O. (PCP) Patient Instructions My [facility] [address] Additional Instructions Cephalexin(Keflex) 500mg: Take one pill four times daily for 10 days for your skin infection. All antibiotics can cause diarrhea. If this occurs and you feel worse or it does not resolve in 1-2 days follow up with your doctor or return to the Emergency Department as this could be signs of serious underlying problems. Any medication can cause an allergic reaction, stop the pills immediately and return to the ER for rash, hives, breathing difficulties, or swelling. Trimethoprim-Sulfamethoxazole(Bactrim DS): Take one pill twice daily for 10 days for your skin infection. All antibiotics can cause diarrhea. If this occurs and you feel worse or it does not resolve in 1-2 days follow up with your doctor or return to the Emergency Department as this could be signs of serious underlying problems. Any medication can cause an allergic reaction, stop the pills immediately and return to the ER for rash, hives, breathing difficulties, or swelling. Zofran 4 m tablet every 6 hours as needed for nausea and vomiting. Ibuprofen(Motrin, Advil) may be used for fever or pain. Use 600mg every six hours as needed. Take with food. Avoid using more than 2400mg in a 24 hour period. Do not use 2400mg per day for more than three consecutive days without physician direction. Prolonged inappropriate use can lead to stomach upset or ulcers. (AND/OR) Acetaminophen(Tylenol) may be used for fever or pain. Use 1000mg every six hours as needed. Avoid using more than 4000mg in a 24 hour period. Warm compresses to the affected area 4 times daily for 15-20 minutes. Do not touch the area. [place] diet for the next few days until stomach symptoms resolve. Rest and drink plenty of fluids. Continue current medications. Return to the ER for severe pain, persistent fevers, abdominal pain, spreading redness, or any worsening of your condition. Follow up with your primary physician within 2-3 days for a recheck of the current condition. Problem Qualifiers Additional Impression: Cellulitis Site of cellulitis: extremity Site of cellulitis of extremity: lower extremity Laterality: left Qualified Codes: L03.116 - Cellulitis of left lower limb
[2017-04-14] MEDS ORDERED: CEPH500C2 PO (04:57)
[2017-04-14] MEDS ORDERED: SULF800T23 PO (04:57)
[2017-04-14 05:00] VITALS: BP 120/68; PULSE 72; O2SAT 98
== END 2017-04-14 05:05 | disposition home or self-care (01) ==
LOC: C.EDB 01:44 → C.EDC 05:05
DX: R11.2 Nausea with vomiting, unspecified (principal); R19.7 Diarrhea, unspecified; L03.116 Cellulitis of left lower limb; Z83.79 Family history of other diseases of the digestive system; Z84.1 Family history of disorders of kidney and ureter

== ENCOUNTER → 2017-08-27 | Outpatient (CLI) | payer OTHER ==
[~2017-08-27] MED LIST changes: -ACET-1256 PO; -METH10TA2 PO; -ONDA4TAB10 SL; -TRAM-10 PO; +[UNRECOGNIZED DRUG - OTHER] PO
== END | disposition home or self-care (01) ==
LOC: C.LAB 11:31
PROVIDERS: ATTEND Obstetrics & Gynecology
DX: Z32.00 Encounter for pregnancy test, result unknown (principal)

== ENCOUNTER 2017-10-29 19:21 | Emergency (ER) | payer OTHER ==
[~2017-10-29] VITALS: Ht 157.5 cm; Wt 55.1 kg
[2017-10-29 19:33] VITALS: BP 132/79; PULSE 101; TEMP 36.8; O2SAT 100; Ht 157.5 cm; Wt 55.1 kg
[2017-10-29] MEDS ORDERED: PENICILLIN V POTASSIUM 250 MG TAB PO STA (19:50)
[2017-10-29] MEDS ORDERED: CHLORHEXIDINE GLUCONATE 0.12% 480 ML MT STA (19:50)
[2017-10-29] MEDS ORDERED: PENI-82 PO (19:52)
--- NOTE | 2017-10-29 19:57 | EMERGENCY ROOM VISIT NOTE ---
ED Visit Note First contact with patient: 19:39 CHIEF COMPLAINT: Left upper toothache HISTORY OF PRESENT ILLNESS: This 32-year-old female patient presented to the emergency department, ambulatory, with left upper jaw pain which began last night. The patient states she had 4 upper molars removed, 2 from each side, last Saturday. She states her right side seems to be healing okay, but there was a complication of some sort with the left side. She did have 2 sutures placed on the left upper jaw, and states 1 of the sutures popped loose last evening. She states she noticed that there was bone exposed in the left upper jaw since last evening. She tried contacting her dentist's office today, however they were closed. She contacted [facility] primary care, and was told to come here, due to the exposed bone. The patient states she is noticing some significant swelling. The patient has been taking intermittent ibuprofen and naproxen for her pain, without significant improvement. She was on tramadol and OxyIR, and continue to experience discomfort. She states she did run out of both of these medications. She does have a follow-up scheduled with her dentist on Saturday. She states she was placed on a Z-Ever, which she recently finished, but denies any other antibiotics or mouthwash. Denies facial swelling or fever. The patient denies any discharge from the mouth. REVIEW OF SYSTEMS: A 6 system review of systems was completed with positives and pertinent negatives listed in the HPI. ALLERGIES: Citalopram, Seroquel MEDICATIONS: None PMH: None SOCIAL HISTORY: The patient lives locally with family. She denies drug, alcohol use. She admits to smoking 1 pack of cigarettes per day. PHYSICAL EXAM: Vitals are noted on the nurse's note and reviewed by myself. Vital signs stable. Temperature 36.8C orally. GENERAL: This is a 32-year-old white female, in no acute distress, nondiaphoretic, well-developed well- nourished. Mouth: Sutures present in the left maxilla, however one suture appears loose. There is a small portion of the mandible noted through the gum tissue. There is mild edema noted in the gum. There is no obvious drainage or discharge. There is no significant erythema. The gum is tender, but no signs of abscess. The remainder of the pharynx and tonsils are without erythema, edema, or exudate. The airway is patent. There is no facial swelling, cervical or submandibular lymphadenopathy. The patient appears uncomfortable and in pain. The patient has overall poor dental hygiene. EARS: External auditory canals clear, tympanic membranes pearly huffman without erythema or effusion bilaterally. ED COURSE: The patient was seen and evaluated as above. I suspect the patient is experiencing pain related to the exposed bone from the recent surgery. The patient has been on narcotics for quite some time, and I did consult PDMP which showed recent tramadol and OxyIR prescriptions from Dr. Bautista. The patient was encouraged to contact his office first thing tomorrow morning to establish follow-up sooner than Saturday. She was educated on proper use of OTC analgesics and anti-inflammatory medications. She will be started on Pen-Vee K and chlorhexidine mouthwash due to the symptoms. She was provided with benzocaine topical gel to use on the painful parts of her teeth and gums. The patient was agreeable to the assessment and plan. Discharge instructions reviewed, the patient was discharged home in good condition. I attest that I have personally reviewed the patient's current medication list. Patient was found to have normal blood pressure on screening and does not require follow-up. Differential diagnosis includes odontalgia, postop infection, periapical abscess , acute sinusitis, osteomyelitis, gingivitis, pulpitis, dental caries, periodontitis, malignancy, and others DIAGNOSIS: Odontalgia The chart was completed utilizing [employer] Speech voice recognition software. Grammatical errors, random word insertions, pronoun errors, and incomplete sentences are an occasional consequence of this system due to software limitations, ambient noise, and hardware issues. Any formal questions or concerns about the content, text, or information contained within the body of this dictation should be directly addressed to the provider for clarification. Problem List Medical Problems: (1) Headache Status: Resolved (2) labor Status: Resolved (3) Pyelonephritis Status: Resolved Current/Historical Medications Scheduled Penicillin V Potassium (Veetids), 500 MG PO QID Scheduled PRN [Benetol], 10 MG PO for WEIGHT LOSS Allergies Coded Allergies: Citalopram (Verified Allergy, Unknown, SHORTNESS OF BREATH, 03/26/17) Vital Signs Date Time Temp Pulse Resp B/P (MAP) Pulse Ox O2 Delivery O2 Flow Rate FiO2 10/29/17 19:33 36.8 101 18 132/79 100 Room Air Departure Information Impression Primary Impression: Odontalgia Dispostion Home / Self-Care Condition GOOD Prescriptions Penicillin V Potassium (Veetids) 500 Mg Tab 500 MG PO QID for 10 Days, #40 TAB Prov: Danyelle Pelletier PA-C 10/29/17 Referrals Anusha Brown (PCP) Marshall Bautista D.M.D Patient Instructions ED Abscess Dental, My [facility] Additional Instructions You were seen in the emergency department today for dental pain after having teeth pulled. As discussed, the suture does appear to remain in tact, however, I do suspect it was pulled away from a piece of tissue. There is some exposed bone, however, this will need to be followed up by your dentist. Use chlorhexidine mouthwash twice daily. Use benzocaine which was provided to you to help ease the discomfort associated with the dental pain. Ibuprofen(Motrin, Advil) may be used for fever or pain. Use 600mg every six hours as needed. Take with food. Avoid using more than 2400mg in a 24 hour period. Do not use 2400mg per day for more than three consecutive days without physician direction. Prolonged inappropriate use can lead to stomach upset or ulcers. You may take Aleve (naproxen) 1-2 tablets twice daily in place of ibuprofen. Please do not use these medications together. (AND/OR) Acetaminophen(Tylenol) may be used for fever or pain. Use 1000mg every six hours as needed. Avoid using more than 3000mg in a 24 hour period. *You may alternate NSAIDs (Advil, Motrin, Ibuprofen, Aleve, Naproxen) and Tylenol every 3 hours for increased pain control). Cold fluids will help to ease the discomfort. Keep foods lukewarm at the hottest and soft. You MUST quit smoking to prevent further dental infections or complications. Contact your dentist's office first thing tomorrow morning to establish follow- up. Return to the emergency department for any worsening symptoms or concerns.
== END 2017-10-29 20:05 | disposition home or self-care (01) ==
LOC: C.EDB 19:24 → C.EDD 20:05
DX: K08.89 Other specified disorders of teeth and supporting structures (principal); Z98.818 Other dental procedure status; F17.210 Nicotine dependence, cigarettes, uncomplicated; Z87.448 Personal history of other diseases of urinary system; Z87.51 Personal history of pre-term labor; Z86.69 Personal history of other diseases of the nervous system and sense organs; Z88.8 Allergy status to other drugs, medicaments and biological substances

== ENCOUNTER 2021-09-03 17:50 | Inpatient (IN) ==
[2021-09-03] MEDS ORDERED: OXYTOCIN 30 UNITS/500 ML BAG IV PRN (22:00)
[2021-09-03 22:40] LABS: Hematocrit (blood only) 31.2 % (37-47); Hemoglobin 10.4 g/dL (12.0-16.0); Mean Corpuscular Hemoglobin 32.3 pg (25-34); Mean Corpuscular Hgb Conc 33.3 g/dL (32-36); Mean Corpuscular Volume 96.9 fL (80-100); Mean Platelet Volume 11.8 fL (7.4-10.4); Platelet Count 181 K/uL (130-400); RDW Coefficient of Variation 14.2 % (11.5-14.5); RDW Standard Deviation 49.7 fL (36.4-46.3); Red Blood Count 3.22 M/uL (4.2-5.4); White Blood Count 10.87 K/uL (4.8-10.8)
[2021-09-03] MEDS: LACTATED RINGER'S 1,000 ML IV PRN (23:30)
[2021-09-04] MEDS ORDERED: BUPIVACAINE 0.25% 30 ML VIAL ONE (01:58)
[2021-09-04] MEDS ORDERED: SODIUM CHLORIDE 0.9% INJ 10 ML VIAL ONE (01:58)
[2021-09-04] MEDS ORDERED: ePHEDrine sulfate 50 MG/ML AMP ONE (01:58)
[2021-09-04] MEDS ORDERED: fentaNYL citrate 100 MCG/2 ML VIAL ONE (01:59)
[2021-09-04] MEDS ORDERED: fentaNYL 2MCG/ML ROPIVACAINE 1.25MG/ML 100 ML BAG EPI ONE (01:59)
[2021-09-04] MEDS ORDERED: NALOXONE HCL 1 MG in SODIUM CHLORIDE 0.9% 1000ML 1,000 ML IV PRN (02:10)
[2021-09-04] MEDS ORDERED: NALOXONE HCL 0.4 MG/1 ML VIAL/CARP IV PRN (02:10)
[2021-09-04] MEDS ORDERED: diphenhydrAMINE 50 MG/ML VIAL IV PRN (02:10)
[2021-09-04] MEDS ORDERED: NALBUPHINE HCL INJ 10 MG/ML AMP IV PRN (02:10)
[2021-09-04] MEDS ORDERED: fentaNYL 2MCG/ML ROPIVACAINE 1.25MG/ML 100 ML BAG EPI PRN (02:10)
[2021-09-04] MEDS ORDERED: ePHEDrine sulfate 50 MG/ML AMP IV PRN (02:10)
--- NOTE | 2021-09-04 02:10 | Anesthesiology Consultation ---
Date of Service September 04, 2021 Assessment & Plan (1) Encounter for pre-operative examination: Chart Review Chart Review: Acceptable Risk for Surgery and Patient NOT seen in Pre Admission Testing Consults Requested none History Height/Weight Height: 5 ft 2 in Weight: 59.874 kg Allergies Allergy/AdvReac Type Severity Reaction Status Date / Time citalopram Allergy Severe SHORTNESS Verified 08/13/21 23:21 OF BREATH quetiapine [From Seroquel] Allergy Severe SOB, O2 Verified 08/13/21 23:21 SAT DROPPED TO 60'S % Medications Home Medications Medication Instructions Recorded Confirmed Last Taken fluoxetine 40 mg capsule (Prozac) 20 mg PO PM 10/23/19 09/03/21 09/03/21 vit no.95-ferrous 1 tab PO DAILY 02/13/21 09/03/21 09/03/21 fumarate 28 mg-folic acid 800 mcg tablet () nicotine 14 mg/24 hr daily 1 patch TRANSDERMAL DAILY 07/31/21 09/03/21 09/03/21 transdermal patch omeprazole 20 mg capsule,delayed 20 mg PO DAILY 07/31/21 09/03/21 09/03/21 release Active Medications Generic Name Dose Route Start Last Admin Trade Name Freq PRN Reason Stop Dose Admin Lactated Ringer's 1,000 mls @ 125 mls/hr 09/03/21 22:00 09/04/21 00:05 Lr IV 09/05/21 21:59 0 mls/hr .Q8H PRN Infusion L&D Protocol Protocol Past Medical History Medical History KYLAH (generalized anxiety disorder) History of drug abuse took methadone but has been off for 6 years. IUD migration MDD (major depressive disorder) No significant past medical history labor PTSD (post-traumatic stress disorder) Past Family History Family History Other Cancer Diabetes Heart disease Hypertension Past Surgical History Surgical History S/P LEEP of cervix Status post colposcopy Social History Smoking Status: Former smoker tobacco type: e-cigarettes Smoking cigarettes per day: Daily Nicotine patch Hx Alcohol Use: No Hx Substance Use: Yes substance use type: painkillers Substance Use Type Other:: Pt. states she's been off Methadone for 5 years, was on opiates 10 years ag Physical Exam Vital Signs Last Vital Signs Temp 98.2 F 09/03/21 23:27 Pulse 96 H 09/03/21 23:27 Resp 18 09/03/21 23:27 BP 105/57 L 09/03/21 23:27 Testing Laboratory Results 09/03/21 22:27
[2021-09-04] MEDS: LACTATED RINGER'S 1,000 ML IV PRN ×3 (02:20→15:38)
[2021-09-04] MEDS ORDERED: OXYTOCIN 30 UNITS/500 ML BAG IV PRN ×2 (04:10→17:19)
[2021-09-04 09:57] LABS: Amphetamines+Metham, Urine Neg (Neg); Barbiturates, Urine Neg (Neg); Benzodiazepine, Urine Neg (Neg); Cocaine, Urine Neg (Neg); MDMA (Ecstacy), Urine Neg (Neg); Methadone, Urine Neg (Neg); Opiate, Urine Neg (Neg); Phencyclidine, Urine Neg (Neg)
[2021-09-04] MEDS ORDERED: ACETAMINOPHEN 325 MG TAB PO PRN ×2 (14:29→17:19)
--- NOTE | 2021-09-04 14:48 | Labor Progress Brief Note ---
Date of Service September 04, 2021 Assessment & Plan (1) Supervision of normal intrauterine in multigravida: Plan: Pt doing well FHR; CAT1 Ctx 1-3mins Pit; 20MU VE 290/-2 AROM with amniohook- clear fluid anticipate VD Admission and Anticipated Discharge Date Admission Date: September 03, 2021 Results & Data ([facility]) Vital Signs (Past 12 Hours) Vital Signs Temp Pulse Resp BP Pulse Ox 09/04/21 14:43 83 93 09/04/21 14:38 82 92 09/04/21 14:33 75 93 09/04/21 14:28 80 92 09/04/21 14:25 72 91/51 L 09/04/21 14:23 85 92 09/04/21 14:18 81 92 09/04/21 14:13 76 92 09/04/21 14:08 73 92 09/04/21 14:03 75 92 09/04/21 13:58 97 H 93 09/04/21 13:56 78 89 L 09/04/21 13:55 72 109/52 L 09/04/21 13:53 68 90 09/04/21 13:48 75 91 09/04/21 13:45 66 89 L 09/04/21 13:43 75 90 09/04/21 13:40 83 89 L 09/04/21 13:38 81 92 09/04/21 13:33 62 89 L 09/04/21 13:32 66 89 L 09/04/21 13:30 20 09/04/21 13:28 80 91 09/04/21 13:25 65 96/55 L 89 L 09/04/21 13:23 63 89 L 09/04/21 13:18 62 89 L 09/04/21 13:14 63 89 L 09/04/21 13:13 63 90 09/04/21 13:08 61 88 L 09/04/21 13:03 66 88 L 09/04/21 13:00 20 09/04/21 12:59 63 89 L 09/04/21 12:58 66 90 09/04/21 12:56 72 103/51 L 09/04/21 12:53 73 90 09/04/21 12:51 71 89 L 09/04/21 12:48 74 92 09/04/21 12:43 65 92 09/04/21 12:39 57 L 89 L 09/04/21 12:38 60 89 L 09/04/21 12:33 62 89 L 09/04/21 12:29 20 09/04/21 12:28 63 88 L 09/04/21 12:26 60 89 L 09/04/21 12:25 63 99/55 L 09/04/21 12:23 67 89 L 09/04/21 12:18 65 89 L 09/04/21 12:17 65 89 L 09/04/21 12:13 74 92 09/04/21 12:12 75 89 L 09/04/21 12:08 102 H 93 09/04/21 12:06 75 88 L 09/04/21 12:03 64 92 09/04/21 12:00 20 09/04/21 11:58 73 92 09/04/21 11:55 61 91/54 L 09/04/21 11:53 64 92 09/04/21 11:48 64 92 09/04/21 11:43 59 L 92 09/04/21 11:38 60 94 09/04/21 11:33 64 94 09/04/21 11:31 20 09/04/21 11:28 74 92 09/04/21 11:26 86 101/54 L 09/04/21 11:24 94 H 87 L 09/04/21 11:23 93 H 93 09/04/21 11:18 70 92 09/04/21 11:16 70 101/46 L 09/04/21 11:13 67 92 09/04/21 11:08 85 92 09/04/21 11:03 89 93 09/04/21 11:01 18 09/04/21 11:00 85 87 L 09/04/21 10:58 70 93 09/04/21 10:53 78 94 09/04/21 10:48 36.7 C 102 H 20 93 09/04/21 10:43 85 91 09/04/21 10:38 77 91 09/04/21 10:33 76 91 09/04/21 10:31 18 09/04/21 10:28 78 93 09/04/21 10:25 86 86 L 09/04/21 10:23 86 92 09/04/21 10:18 88 92 09/04/21 10:13 87 93 09/04/21 10:08 70 92 09/04/21 10:03 78 91 09/04/21 10:01 18 09/04/21 09:58 71 90 09/04/21 09:55 72 98/51 L 09/04/21 09:53 69 92 09/04/21 09:48 66 92 09/04/21 09:43 75 93 09/04/21 09:38 72 91 09/04/21 09:33 73 92 09/04/21 09:31 18 09/04/21 09:28 81 93 09/04/21 09:27 71 98/55 L 09/04/21 09:24 89 88 L 09/04/21 09:23 67 91 09/04/21 09:18 67 91 09/04/21 09:13 64 92 09/04/21 09:08 77 90 09/04/21 09:03 71 93 09/04/21 09:01 18 09/04/21 08:58 80 92 09/04/21 08:56 64 105/54 L 09/04/21 08:53 69 93 09/04/21 08:48 77 92 09/04/21 08:43 64 91 09/04/21 08:38 71 91 09/04/21 08:37 72 89 L 09/04/21 08:33 71 93 09/04/21 08:31 18 09/04/21 08:28 97 H 91 09/04/21 08:25 91 H 104/55 L 09/04/21 08:23 85 93 09/04/21 08:18 91 H 93 09/04/21 08:13 96 H 93 09/04/21 08:08 76 92 09/04/21 08:03 77 91 09/04/21 08:01 18 09/04/21 07:58 79 92 09/04/21 07:56 75 96/46 L 09/04/21 07:53 88 90 09/04/21 07:48 82 92 09/04/21 07:43 81 92 09/04/21 07:38 94 H 92 09/04/21 07:37 96 H 86 L 09/04/21 07:33 78 93 09/04/21 07:31 98 H 18 94 09/04/21 07:28 94 H 93 09/04/21 07:25 77 94/50 L 02/07/22 07:23 93 H 92 09/04/21 07:18 86 93 09/04/21 07:17 89 94 09/04/21 07:16 36.9 C 18 09/04/21 07:13 77 93 09/04/21 07:08 80 96/46 L 92 09/04/21 07:03 84 93 09/04/21 06:58 83 91 09/04/21 06:56 77 92/46 L 09/04/21 06:53 78 92 09/04/21 06:48 81 92 09/04/21 06:46 89 94 09/04/21 06:43 96 H 94 09/04/21 06:38 81 92 09/04/21 06:33 74 92 09/04/21 06:28 87 92 09/04/21 06:23 70 92/51 L 92 09/04/21 06:18 84 94 09/04/21 06:13 76 93 09/04/21 06:09 74 104/57 L 09/04/21 06:08 77 91 09/04/21 06:05 81 88/51 L 09/04/21 06:03 79 92 09/04/21 05:58 65 92 09/04/21 05:53 67 83/45 L 92 09/04/21 05:48 68 92 09/04/21 05:43 68 91 09/04/21 05:38 67 92/50 L 85 L 09/04/21 05:33 66 92 09/04/21 05:28 71 92 09/04/21 05:24 73 102/57 L 09/04/21 05:23 89 92 09/04/21 05:18 72 93 09/04/21 05:14 83 94 09/04/21 05:13 73 94 09/04/21 05:08 71 99/56 L 94 09/04/21 05:05 73 94 09/04/21 05:03 74 94 09/04/21 05:00 101 H 93 09/04/21 04:58 74 95 09/04/21 04:55 69 99/56 L 09/04/21 04:53 78 97 09/04/21 04:52 92 H 94 09/04/21 04:48 122 H 95 09/04/21 04:47 101 H 94 09/04/21 04:43 128 H 81 L 09/04/21 04:38 83 85/52 L 95 09/04/21 04:35 96 H 94 09/04/21 04:33 116 H 94 09/04/21 04:28 90 92 09/04/21 04:23 92 H 98/54 L 95 09/04/21 04:22 99 H 92 09/04/21 04:18 74 96 09/04/21 04:13 72 97 09/04/21 04:10 83 92 09/04/21 04:08 76 101/55 L 97 09/04/21 04:07 36.8 C 09/04/21 04:05 86 92 09/04/21 04:03 70 97 09/04/21 03:58 72 95 09/04/21 03:57 69 110/58 L 09/04/21 03:55 69 84/46 L 09/04/21 03:53 93 H 97 09/04/21 03:48 68 97 09/04/21 03:47 65 83/51 L 09/04/21 03:43 63 97 09/04/21 03:42 60 81/49 L 09/04/21 03:38 64 79/42 L 94 09/04/21 03:36 53 L 90/52 L 09/04/21 03:33 68 94 09/04/21 03:28 95 H 96 09/04/21 03:27 68 94 09/04/21 03:23 75 108/49 L 96 09/04/21 03:20 75 86 L 09/04/21 03:18 67 94 09/04/21 03:14 70 92 09/04/21 03:13 82 94 09/04/21 03:09 74 93 09/04/21 03:08 37.0 C 64 18 113/55 L 97 09/04/21 03:04 65 94 09/04/21 03:03 71 96 09/04/21 02:59 69 106/55 L 09/04/21 02:58 76 91 09/04/21 02:53 73 94 09/04/21 02:52 77 93 09/04/21 02:49 69 106/51 L 09/04/21 02:48 77 95 09/04/21 02:47 87 94
[2021-09-04] MEDS ORDERED: METHYLERGONOVINE MALEATE 0.2 MG/ML AMP ONE (16:52)
[2021-09-04] MEDS ORDERED: miSOPROStoL 200 MCG TAB ONE (16:52)
[2021-09-04] MEDS ORDERED: bisacodyL 10 MG SUPP PR PRN (17:19)
[2021-09-04] MEDS ORDERED: HYDROCORTISONE ACETATE 25 MG SUPP PR PRN (17:19)
[2021-09-04] MEDS ORDERED: BENZOCAINE 20% AER SPR 82.5 GM CAN EXT PRN (17:19)
[2021-09-04] MEDS ORDERED: miSOPROStoL 200 MCG TAB PR ONE (17:19)
[2021-09-04] MEDS ORDERED: DIPHTHERIA/TETANUS/PERTUSSIS 0.5 ML SYR/VIAL IM ONE (17:19)
[2021-09-04] MEDS ORDERED: METHYLERGONOVINE MALEATE 0.2 MG/ML AMP IM ONE (17:19)
--- NOTE | 2021-09-04 18:03 | Anesthesia Procedure Note ---
Date of Service September 04, 2021 Anesthesia Post Epidural Note Vital Signs Vital Signs: Temp Pulse Resp BP Pulse Ox 36.9 C 68 20 96/55 L 98 09/04/21 17:15 09/04/21 16:55 09/04/21 17:30 09/04/21 16:55 09/04/21 16:48 Pain Intensity Lower Abdomen: Pain Intensity: 1 Notes Mental Status: alert / awake / arousable and participated in evaluation Nausea / Vomiting: adequately controlled Pain: adequately controlled Airway Patency, RR, SpO2: stable & adequate BP & HR: stable & adequate Hydration State: stable & adequate Neuraxial Anesthesia: was administered and sensory block is resolving Anesthetic Complications: no major complications apparent and Pt Satisfied with anesthetic care Epidural: Removed without complications and With tip intact
[2021-09-04] MEDS ORDERED: ONDANSETRON INJ 2 MG/ML 2 ML VIAL IV PRN ×2 (18:25)
[2021-09-04] MEDS: IBUPROFEN 600 MG TAB PO PRN (18:46)
[2021-09-04] MEDS: DOCUSATE SODIUM 100 MG CAP PO SCH (21:58)
[2021-09-04] MEDS: PANTOprazole 40 MG TAB PO SCH (23:59)
[2021-09-05] MEDS: IBUPROFEN 600 MG TAB PO PRN ×6 (03:31→21:20)
[2021-09-05 06:48] LABS: Hematocrit (blood only) 27.8 % (37-47); Hemoglobin 9.3 g/dL (12.0-16.0); Mean Corpuscular Hemoglobin 32.6 pg (25-34); Mean Corpuscular Hgb Conc 33.5 g/dL (32-36); Mean Corpuscular Volume 97.5 fL (80-100); Mean Platelet Volume 12.4 fL (7.4-10.4); Platelet Count 161 K/uL (130-400); RDW Coefficient of Variation 14.3 % (11.5-14.5); RDW Standard Deviation 49.8 fL (36.4-46.3); Red Blood Count 2.85 M/uL (4.2-5.4); White Blood Count 8.48 K/uL (4.8-10.8)
[2021-09-05] MEDS: PRENATAL VITAMIN 1 TAB PO SCH (08:09)
[2021-09-05] MEDS: FERROUS SULFATE 325 MG TAB PO SCH (08:09)
[2021-09-05] MEDS: DOCUSATE SODIUM 100 MG CAP PO SCH ×2 (08:09→21:20)
[2021-09-05] MEDS: FLUoxetine HCL 20 MG CAP PO SCH (08:11)
--- NOTE | 2021-09-05 08:26 | Delivery Summary ---
DELIVERY NOTE The patient delivered a live infant in left occiput presentation. There was a body cord. Infant was delivered without difficulty, placed on mother's abdomen. Delayed cord clamp was performed after 1 minute. Cord blood was obtained. Placenta was spontaneously delivered. Placenta was sent to [facility] for pathological analysis. Inspection of the perineum showed no laceration or tears. Rectal exam post-repair showed good sphinc ter tone. Estimated blood loss is 550 mL. Baby and mother are doing well in recovery. All instruments were rem ernestina from the vagina and accounted for x2 including sponges and retractors. Job ID: [id number]
--- NOTE | 2021-09-05 10:11 | Obstetrical Progress Note ---
Date of Service September 05, 2021 Subjective Ambulation: ambulating normally Voiding: no voiding problems Passing Gas:: Yes Diet Tolerance:: regular diet Lochia:: Small Feeding Type:: breast feeding Current Pain Level(1-10): 0 doing well baby staying to watch for jaundice Physical Exam Constitutional WD/WN, vitals as above comfortable abdomen soft and non-tender fundus firm tent d/c in AM Results & Data ([facility]) Vital Signs (Past 12 Hours) Vital Signs Temp Pulse Resp BP Pulse Ox 09/05/21 07:40 36.4 C L 65 18 109/66 98 09/05/21 03:00 36.6 C 61 20 107/70 99 09/04/21 23:25 36.9 C 67 20 91/54 L 98
[2021-09-05] MEDS ORDERED: bisacodyL 5 MG TABEC PO SCH (20:00)
[2021-09-05] MEDS: NICOTINE 14 MG/24 HR PATCH TD SCH ×2 (21:20)
[2021-09-05] MEDS: PANTOprazole 40 MG TAB PO SCH (21:20)
[2021-09-06] MEDS: IBUPROFEN 600 MG TAB PO PRN ×3 (01:10→10:04)
[2021-09-06 07:06] LABS: Hematocrit (blood only) 27.3 % (37-47); Hemoglobin 8.9 g/dL (12.0-16.0)
[2021-09-06] MEDS: FERROUS SULFATE 325 MG TAB PO SCH (08:15)
[2021-09-06] MEDS: DOCUSATE SODIUM 100 MG CAP PO SCH (08:15)
[2021-09-06] MEDS: PRENATAL VITAMIN 1 TAB PO SCH (08:16)
[2021-09-06] MEDS: FLUoxetine HCL 20 MG CAP PO SCH (08:17)
--- NOTE | 2021-09-06 09:08 | Obstetrical Progress Note ---
Date of Service September 06, 2021 Assessment & Plan Admission and Anticipated Discharge Date Admission Date: September 03, 2021 Subjective Patient is seen and examined. She feels well, no complaints. Ambulating without dizziness Voiding without difficulty Tolerating regular diet with out N&V Bleeding is minimal No fever/ chills/ CP/ SOB/ N&V/ Leg pain Breast and bottle feeding without problems Vital Signs Temp Pulse Resp BP Pulse Ox 09/06/21 08:00 36.6 C 62 18 102/67 98 09/05/21 23:55 36.5 C 66 18 91/50 L 98 09/05/21 20:20 36.7 C 64 18 93/61 L 98 09/05/21 11:25 36.4 C L 59 L 16 86/42 L 98 Lab Results 09/03/21 09/03/21 09/04/21 Range/Units 02:27 22:27 09:00 WBC 10.87 H (4.8-10.8) K/uL RBC 3.22 L (4.2-5.4) M/uL Hgb 10.4 L (12.0-16.0) g/dL Hct 31.2 L (37-47) % MCV 96.9 (80-100) fL MCH 32.3 (25-34) pg MCHC 33.3 (32-36) g/dL RDW Std Deviation 49.7 H (36.4-46.3) fL RDW Coeff of Jordi 14.2 (11.5-14.5) % Plt Count 181 (130-400) K/uL MPV 11.8 H (7.4-10.4) fL Urine Opiates Screen Neg (Neg) Ur Methadone, Qual Neg (Neg) Urine Barbiturates Neg (Neg) Ur Phencyclidine (PCP) Neg (Neg) U Amphetamin/Meth Scrn Neg (Neg) MDMA (Ecstasy) Screen Neg (Neg) U Benzodiazepines Scrn Neg (Neg) Ur Cocaine Metabolite Neg (Neg) U Marijuana (THC) Screen Neg (Neg) Blood Type A Positive Antibody Screen NEGATIVE 09/05/21 09/06/21 Range/Units 06:11 06:45 WBC 8.48 (4.8-10.8) K/uL RBC 2.85 L (4.2-5.4) M/uL Hgb 9.3 L 8.9 L (12.0-16.0) g/dL Hct 27.8 L 27.3 L (37-47) % MCV 97.5 (80-100) fL MCH 32.6 (25-34) pg MCHC 33.5 (32-36) g/dL RDW Std Deviation 49.8 H (36.4-46.3) fL RDW Coeff of Jordi 14.3 (11.5-14.5) % Plt Count 161 (130-400) K/uL MPV 12.4 H (7.4-10.4) fL Urine Opiates Screen (Neg) Ur Methadone, Qual (Neg) Urine Barbiturates (Neg) Ur Phencyclidine (PCP) (Neg) U Amphetamin/Meth Scrn (Neg) MDMA (Ecstasy) Screen (Neg) U Benzodiazepines Scrn (Neg) Ur Cocaine Metabolite (Neg) U Marijuana (THC) Screen (Neg) Blood Type Antibody Screen PE: General: Alert, orientedx3, NAD Abd: soft, NT, fundus firm, below Umbilicus Perineum intact, Lochia rubra minimal Ext; NT, no edema AP: 36 yo s/p , ppd# 2 VSS Afebrile doing well Continue routine care Discussed contraception, she had h/o BTL after uterine perforation by an IUD Desires Progestin only pills for now All questions were answered D/C home , f/u in office Results & Data ([facility]) Vital Signs (Past 12 Hours) Vital Signs Temp Pulse Resp BP Pulse Ox 09/06/21 08:00 36.6 C 62 18 102/67 98 09/05/21 23:55 36.5 C 66 18 91/50 L 98
[2021-09-06] MEDS ORDERED: FERROUS SULFATE 325 MG TAB PO SCH (21:00)
== END 2021-09-06 16:29 | disposition home or self-care (01) | DRG 807 ==
LOC: OPB 17:50 → 4S1 17:51 → 4S2 09-04 19:16